=== PATIENT | male | born 1995 | race African-American/Black ===

== ENCOUNTER 2016-10-07 22:20 | Emergency (ER) | payer SELFPAY ==
[~2016-10-07] VITALS: Ht 165.1 cm; Wt 77.1 kg
[2016-10-07 22:20] VITALS: BP 129/79
== END 2016-10-08 03:00 | disposition left against medical advice (07) ==
LOC: ER 22:35
DX: F12.90 Cannabis use, unspecified, uncomplicated (principal); Z53.21 Procedure and treatment not carried out due to patient leaving prior to being seen by health care provider
CPT/HCPCS: 36415; 80320